=== PATIENT | female | born 1960 | race Caucasian/White ===

== ENCOUNTER 2023-11-14 12:31 | Emergency (ER) | payer MEDICARE ==
[2023-11-14 12:47] VITALS: BP 170/80; O2SAT 97
--- NOTE | 2023-11-14 13:23 | ED Physician Documentation ---
PD HPI HEENT - Stated complaint Stated Complaint: SWOLLEN GLAND/UNABLE TO SWALLOW - Chief complaint Chief Complaint: Heent - History obtained from History obtained from: Patient - Additional information Additional information: 63-year-old woman who is relatively healthy awoke with pain and swelling over the angle of the mandible on the right today. There is no primary tooth pain but it does hurt to chew and swallow. No fevers. She does have a bad tooth on that side which at some point will need a filling per her. PD PAST MEDICAL HISTORY - Past Medical History Past Medical History: No Cardiovascular: Hypertension GI: Diverticulitis - Past Surgical History Past Surgical History: Yes - Present Medications Home Medications: Ambulatory Orders Medication Instructions Recorded Confirmed Amox/Clav 875/125 [Augmentin] 1 each PO Q12H #14 tablet 11/14/23 - Allergies Allergies/Adverse Reactions: Allergies Allergy/AdvReac Type Severity Reaction Status Date / Time No Known Drug Allergies Allergy Verified 11/14/23 12:35 - Social History Does the pt smoke?: No Smoking Status: Never smoker Does the pt drink ETOH?: No Does the pt have substance abuse?: No - Immunizations Immunizations are current?: Yes PD ED PE NORMAL - Vitals Vital signs reviewed: Yes - General General: Alert and oriented X 3, No acute distress - HEENT HEENT: Other (There is mild tenderness and swelling over the left parotid. Full range of motion of the jaw without trismus. Visualized portions of the oropharynx are normal, she is without tonsils. No tender teeth, sublingual edema.) - Neck Neck: Supple, no meningeal sign, No bony TTP - Neuro Neuro: Alert and oriented X 3 Results - Vitals Vitals: Vital Signs - 24 hr 11/14/23 12:35 Temperature 36.8 C Heart Rate 80 Respiratory 16 Rate Blood Pressure 170/80 H O2 Saturation 97 Oxygen O2 Source Room air PD Medical Decision Making - ED course ED course: Looks like she has a very mild early case of parotitis which we will treat with antibiotics. I do not see any evidence of pharyngitis or dental infection. Departure - Departure Disposition: 01 Home, Self Care Clinical Impression: Parotitis, acute Condition: Good Record reviewed to determine appropriate education?: Yes Instructions: ED Sublingual Gland Obstruction Prescriptions: Amox/Clav 875/125 [Augmentin] 1 each PO Q12H #14 tablet Comments: As discussed, I think you have a mild case of parotitis. I sent the prescription for antibiotics electronically to [facility] in [place]. Return if worsening or if not improved over the first few days. Do follow-up with your doctor regardless sometime in the next week or so for recheck. Forms: PCP List
[2023-11-14] MEDS: AMOX/CLAV 875 MG/125 MG TABLET PO STA (13:35)
== END 2023-11-14 13:39 | disposition home or self-care (01) ==
LOC: ED 12:31
DX: K11.21 Acute sialoadenitis (principal)
CPT/HCPCS: 99283; A9270